=== PATIENT | male | born 1950 | race Hispanic/Latino ===

== ENCOUNTER → 2017-08-28 | Day surgery (SDC) | payer OTHER ==
[2017-08-26 14:23] LABS: BASOPHILS % 0.7 % (0.0-1.0); EOSINOPHILS # (AUTO) 0.1 (0.0-0.4); EOSINOPHILS % 1.3 % (0.0-6.0); HEMATOCRIT 42.5 % (38.2-49.6); HEMOGLOBIN 14.3 g/dL (14.0-18.0); LYMPHOCYTES # (AUTO) 1.7 (1.0-3.2); LYMPHOCYTES % 27.3 % (18.0-39.1); MEAN CORPUSCULAR HEMOGLOBIN 30.9 pg (28-32); MEAN CORPUSCULAR HGB CONC 33.6 g/dL (31-35); MEAN CORPUSCULAR VOLUME 91.8 fL (81-99); MONOCYTES # (AUTO) 0.5 (0.2-0.8); MONOCYTES % 8.8 % (4.4-11.3); NEUTROPHILS # (AUTO) 3.8 (2.1-6.9); NEUTROPHILS % 61.6 % (38.7-80.0); PLATELET COUNT 176 x10e3/uL (140-360); RED BLOOD COUNT 4.63 x10e6/uL (4.3-5.7); RED CELL DISTRIBUTION WIDTH 12.8 % (11.7-14.4)
[2017-08-26 14:36] LABS: ANION GAP 12.9 mmol/L (8-16); BLOOD UREA NITROGEN 17 mg/dL (7-26); BUN/CREATININE RATIO 19 (6-25); CALCIUM 9.1 mg/dL (8.4-10.2); CARBON DIOXIDE 25 mmol/L (22-29); CHLORIDE 104 mmol/L (98-107); CREATININE, SERUM 0.89 mg/dL (0.72-1.25); EST GLOMERULAR FILTRATION RATE > 60 ML/MIN (60-); GLUCOSE 85 mg/dL (74-118); POTASSIUM 3.9 mmol/L (3.5-5.1); SODIUM 138 mmol/L (136-145)
--- NOTE | 2017-08-26 14:53 | Diagnostic Imaging Report ---
PROCEDURE: X-RAY CHEST, TWO VIEWS COMPARISON: None. INDICATIONS: PRE-OP ON LEFT SHOULDER FINDINGS: LUNGS: No mass or infiltrate. Pulmonary vascular markings are normal. PLEURA: No effusions or pneumothorax. HEART \T\ MEDIASTINUM: The heart is normal in size. No hilar lymphadenopathy. BONES \T\ SOFT TISSUES: No focal osseous lesions. There are anchors in the right humeral head. Soft tissues are unremarkable. CONCLUSION: No acute cardiopulmonary process. Dictated by: Devante Whittington M.D. on 08/26/2017 at 15:03 Electronically approved by: Devante Whittington M.D. on 08/26/2017 at 15:03
[~2017-08-28] MED LIST: ATORVASTATIN CA20 MG PO; BUPIVACAINE HCL 0.5% INJ 30 ML VIAL INJ ONE; CEFAZOLIN SOD 2 GM/D5W 50ML 50 ML IV ONE; DEXAMETHASONE SOD PHOS INJ 4 MG/ML VIAL ONE; EPHEDRINE SULFATE INJ 50 MG/10 ML SYR ONE; EPINEPHRINE HCL INJ 1 MG/ML AMP ONE; FENTANYL CITRATE/PF 100MCG/2 ML INJ ONE; LIDOCAINE HCL 2% LOCAL INJ 5 ML SDV VIAL INJ ONE; LOSARTAN POTASS25 MG PO; METFORMIN HCL500 M2 PO; MIDAZOLAM HCL 2 MG/2 ML VIAL ONE; ONDANSETRON HCL INJ 2 MG/ML VIAL ONE; PROPOFOL IV EMULSION 10 MG/ML 20 ML VIAL ONE; ROCURONIUM BROMIDE 10 MG/ML 5ML VIAL ONE; SEVOFLURANE INHAL SOLN 250 ML PEN BTL ONE
--- OUTSIDE RECORDS SUMMARY | 2017-08-28 10:33 | XMS REPORT ---
Author Author [facility] Address Unknown Phone Unavailable Care Team Providers Care Surveyor Helper Name Role Phone JONELLE COLLINS Unavailable Unavailable Problems This patient has no known problems. Allergies, Adverse Reactions, Alerts This patient has no known allergies or adverse reactions. Medications This patient has no known medications. Results Test Description Test Time Test Comments Text Results Atomic Results Result Comments CHEST 2 VIEWS [place] [address] Patient Name: CLAUDIA BERNARD MR #: [id number] : 1950 Age/Sex: 66/M Req #: [id number] Adm Physician: Ordered by: JONELLE COLLINS MD Report #: [id number] Location: OR Room/Bed: Procedure: [id number] DX/CHEST 2 VIEWS Exam Date: 08/26/17 Exam Time: 1435 REPORT STATUS: Signed PROCEDURE: X-RAY CHEST, TWO VIEWS COMPARISON: None. INDICATIONS: PRE-OP ON LEFT SHOULDER FINDINGS: LUNGS: No mass or infiltrate. Pulmonary vascular markings are normal. PLEURA: No effusions or pneumothorax. HEART T MEDIASTINUM: The heart is normal in size. No hilar lymphadenopathy. BONES T SOFT TISSUES: No focal osseous lesions. There are anchors in the right humeral head. Soft tissues are unremarkable. CONCLUSION: No acute cardiopulmonary process. Dictated by: Calvin Whittington M.D. on 08/26/2017 at 15:03 Electronically approved by: Calvin Whittington M.D. on 08/26/2017 at 15:03 Dictated By: CALVIN WHITTINGTON MD [id number] Transcribed By : SHAUN on 08/26/17 1503 COPY TO: JONELLE COLLINS MD
--- NOTE | 2017-08-29 11:01 | Operative Report ---
DATE OF PROCEDURE: August 28, 2017 PREOPERATIVE DIAGNOSES 1. Left rotator cuff tear. 2. Left acromioclavicular joint arthrosis. POSTOPERATIVE DIAGNOSES 1. Massive left [id number] rotator cuff tear. 2. Ruptured long head of the biceps tendon. 3. Synovitis. 4. Acromioclavicular joint arthrosis. PROCEDURES PERFORMED 1. Left shoulder examination under anesthesia. 2. Left shoulder arthroscopy. 3. Left shoulder arthroscopic debridement of synovitis. 4. Left shoulder arthroscopic debridement of a ruptured biceps tendon. 5. Left shoulder arthroscopic subacromial decompression and acromioplasty. 6. Left shoulder arthroscopic repair of a massive rotator cuff tear. 7. Left shoulder arthroscopic distal clavicle resection. MARBLE POLISHER HAND: Meg Henson. ANESTHESIA: General endotracheal intubation anesthesia as well as a regional block. IV FLUIDS: Per the anesthesia record. OPERATIVE PROCEDURE IN DETAIL: Mr. Wright was taken to the operating room and placed in a supine position on the operating table. Following induction of general anesthesia as well as endotracheal intubation, the patient's left upper extremity was examined under anesthesia. He was found to have a normal-appearing shoulder. Passive range of motion of the shoulder joint was full at the time of surgery, and there was no evidence of instability. The patient's upper extremity was prepped and draped in the standard surgical fashion. Standard posterolateral and anterior portals were created without difficulty. The scope was placed within the shoulder joint atraumatically, and examination of the glenohumeral articulation demonstrated mild evidence of chondromalacia. There was diffuse synovitis in the shoulder joint. The biceps tendon was found to not be contained within the shoulder, and the patient was found to have a massive, retracted, full-thickness, rotator cuff tear. The leading edge of the supraspinatus tendon was retracted to the level of the glenoid. The rotator interval was also disrupted. A shaver was placed in the shoulder joint, and the synovitis was debrided. A lateral portal was created through an outside-in technique, and an elevator was placed in the shoulder joint. The rotator cuff tissue was mobilized from its attachment and from its scarring to the superior rim of the glenoid and glenoid neck. A grasper was then used, and the rotator cuff tissue was found to advance forward to the greater tuberosity. Examination of the degree of the tear indicated complete tearing of the supraspinatus and infraspinatus tendons. The shoulder was deflated of its sterile normal saline. The scope was then placed in subacromial space, and bursal tissue was resected. Anteriorly, the patient's biceps tendon stump was identified, and it was debrided at this time. The insertion site for the rotator cuff was then debrided to a bleeding bony bed. Three suture anchors were then inserted into the greater tuberosity of the humerus, and the suture arms from that anchor were then used to advance and firmly reattach the rotator cuff tissue to its normal insertion site. This resulted in repair of the patient's rotator cuff injury as well as re-establishment of the rotator interval. The coracoacromial ligament was resected. An aggressive acromioplasty was performed. The anterior portal was then transferred to the subacromial space, and a 1-cm section of the distal clavicle was resected. The shoulder was then deflated of its sterile normal saline. All portal sites were closed. Dressings were applied, and the patient was provided a shoulder immobilizer, awakened and taken to the postanesthesia care unit in stable condition. Meg Henson was the assistant construction superintendent for this case and was necessary for both prepping and draping the patient as well as positioning of the arm and passage of suture that allowed this case to be successful. Job#: [id number]
== END | disposition home or self-care (01) ==
LOC: OR 10:31
PROVIDERS: ATTEND Specialist
DX: S46.022A Laceration of muscle(s) and tendon(s) of the rotator cuff of left shoulder, initial encounter (principal); S46.112A Strain of muscle, fascia and tendon of long head of biceps, left arm, initial encounter; M65.812 Other synovitis and tenosynovitis, left shoulder; M19.012 Primary osteoarthritis, left shoulder; M94.212 Chondromalacia, left shoulder; I10 Essential (primary) hypertension; E11.9 Type 2 diabetes mellitus without complications; W11.XXXA Fall on and from ladder, initial encounter; Z01.810 Encounter for preprocedural cardiovascular examination; Z01.812 Encounter for preprocedural laboratory examination; Z01.818 Encounter for other preprocedural examination; Z68.31 Body mass index [BMI] 31.0-31.9, adult
CPT/HCPCS: 29824; 29826; 29827; 36415; 71046; 80048; 85025; 93005; J0171; J1100; J2001; J2250; J2405

== ENCOUNTER 2018-07-23 09:18 | Emergency (ER) | payer OTHER ==
[~2018-07-23] VITALS: Ht 177.8 cm; Wt 96.2 kg
[~2018-07-23 09:18] MED LIST changes: -BUPIVACAINE HCL 0.5% INJ 30 ML VIAL INJ ONE; -CEFAZOLIN SOD 2 GM/D5W 50ML 50 ML IV ONE; -DEXAMETHASONE SOD PHOS INJ 4 MG/ML VIAL ONE; -EPHEDRINE SULFATE INJ 50 MG/10 ML SYR ONE; -EPINEPHRINE HCL INJ 1 MG/ML AMP ONE; -FENTANYL CITRATE/PF 100MCG/2 ML INJ ONE; -LIDOCAINE HCL 2% LOCAL INJ 5 ML SDV VIAL INJ ONE; -MIDAZOLAM HCL 2 MG/2 ML VIAL ONE; -ONDANSETRON HCL INJ 2 MG/ML VIAL ONE; -PROPOFOL IV EMULSION 10 MG/ML 20 ML VIAL ONE; -ROCURONIUM BROMIDE 10 MG/ML 5ML VIAL ONE; -SEVOFLURANE INHAL SOLN 250 ML PEN BTL ONE
--- NOTE | 2018-07-23 10:27 | NUR ---
Bladder scan done at 1018 38 mL
[2018-07-23 11:42] LABS: BILIRUBIN,URINE NEGATIVE (NEGATIVE); CLARITY,URINE CLEAR (CLEAR); COLOR,URINE YELLOW (YELLOW); KETONES,URINE NEGATIVE (NEGATIVE); LEUKOCYTE ESTERASE ,URINE NEGATIVE (NEGATIVE); NITRITE,URINE NEGATIVE (NEGATIVE); PROTEIN,URINE DIPSTICK NEGATIVE (NEGATIVE); URINE UROBILINOGEN 0.2 mg/dL (0.2 - 1)
[2018-07-23] MEDS ORDERED: FLOMAX0.4 MG PO (11:59)
[2018-07-23 12:06] LABS: EPITHELIAL CELLS,URINE RARE /LPF
[2018-07-23 12:25] VITALS: BP 133/76
== END 2018-07-23 12:35 | disposition home or self-care (01) ==
LOC: ER 09:18
DX: R33.9 Retention of urine, unspecified (principal); N40.1 Benign prostatic hyperplasia with lower urinary tract symptoms
CPT/HCPCS: 81001; 99282